=== PATIENT | male | born 1980 | race Caucasian/White ===

== ENCOUNTER 2016-12-03 05:30 | Emergency (ER) | payer OTHER ==
[~2016-12-03] VITALS: Ht 185.4 cm; Wt 86.1 kg
[~2016-12-03 05:30] MED LIST: ALEVE220 M2 PO; IBUPROFEN400 MG PO; LEVAQUIN500 MG PO; MOTRIN800 MG PO; NOHOMEMEDS; PERCOCET 5/31 TABLET PO; TRAMADOL HCL50 MG PO; VYVANSE60 MG PO
[2016-12-03 06:09] LABS: EOSINOPHIL (%) 0 % (0-5); HEMATOCRIT 38.3 % (38.0-50.0); IMMATURE GRANULOCYTE (%) 0.5 % (0.0-0.7); IMMATURE GRANULOCYTE COUNT 0.1 K/uL; INSTRUMENT ABS NEUTROPHIL CT 18.9 K/uL; LYMPHOCYTE COUNT 1.1 K/uL (1.0-2.8); MCH 30.6 PG (29.0-34.0); MCHC 35.5 G/DL (30.0-36.0); MCV 86.3 FL (86-99); MEAN PLAT.VOLUME 9.8 uM^3 (9.0-12.4); MONOCYTE (%) 9.6 % (3-12); MONOCYTE COUNT 2.2 K/uL (0-0.8); NEUTROPHIL (%) 84.8 % (45-76); NEUTROPHIL COUNT 18.9 K/uL (1.8-6.4); PLATELET COUNT 295 K/uL (156-360); RBC DIS.WIDTH-CV 12.5 % (11.8-14.6); RBC DIS.WIDTH-SD 39.5 % (39-53); RED BLOOD COUNT 4.44 M/uL (4.00-5.50); WHITE BLOOD COUNT 22.3 K/uL (4.1-10.2)
[2016-12-03 06:15] VITALS: BP 148/89
[2016-12-03 06:17] LABS: CHLORIDE 105 mEq/L (99-109); POTASSIUM 3.8 mEq/L (3.7-5.4); SODIUM 134 mEq/L (136-147)
[2016-12-03 06:19] LABS: GLUCOSE 128 mg/dL (70-99)
[2016-12-03 06:20] LABS: ANION GAP 10 MEQ/L (2-14)
[2016-12-03 06:23] LABS: GFR ESTIMATE (CALCULATED) > 59 mL/min/
[2016-12-03 06:24] LABS: UREA NITROGEN (BUN) 13 mg/dL (9-23)
[2016-12-03] MEDS ORDERED: PERCOCET 5/31 TABLET PO (07:49)
[2016-12-03] MEDS ORDERED: MOTRIN800 MG PO (07:49)
== END 2016-12-03 09:48 | disposition home or self-care (01) ==
LOC: EME → EDBD 05:30 → EME 09:48
PROVIDERS: Emergency Medicine
DX: N45.3 Epididymo-orchitis (principal); Z72.0 Tobacco use
CPT/HCPCS: 76870; 80048; 81003; 85025; 86850; 86900; 86901; 99281; 99284; J0696; J1885; J2270; J3010; J7030